=== PATIENT | male | born 1975 | race Caucasian/White ===

== ENCOUNTER 2016-05-07 10:44 | Emergency (ER) | payer OTHER ==
[~2016-05-07] VITALS: Ht 170.2 cm; Wt 137.9 kg
[~2016-05-07 10:44] MED LIST: GOLYTELY PACKE1 EACH PO
--- NOTE | 2016-05-07 11:38 | ED GI/GU/ABDOMINAL COMPLAINT ---
History of Present Illness General Chief Complaint: Abdominal Pain/Flank Pain Stated Complaint: N/V ABDM PAIN Source: patient, old records Exam Limitations: no limitations Vital Signs & Intake/Output Vital Signs & Intake/Output Vital Signs Date Time Temp Pulse Resp B/P Pulse O2 O2 Flow FiO2 Ox Delivery Rate 05/07 1339 97.9 94 15 131/73 95 Room Air Room Air 05/07 1049 97.7 84 20 104/70 97 Room Air ED Intake and Output 05/08 0000 05/07 1200 Intake Total 60 Output Total Balance 60 Intake, Oral 60 Patient 304 lb Weight Allergies Coded Allergies: No Known Allergies (04/25/16) Reconcile Medications Atorvastatin Calcium 20 MG TABLET 1 TAB PO DAILY CHOLESTEROL (Reported) Exenatide Microspheres (Bydureon Pen) 2 MG/0.65 ML PEN.INJCTR 2 MG SC QTUES DIABETES (Reported) Insulin Aspart (Novolog) 100 UNIT/ML VIAL PUMP (Reported) Levothyroxine Sodium 100 MCG TABLET 1 TAB PO DAILY AC THYROID (Reported) Losartan Potassium 50 MG TABLET 1 TAB PO DAILY HEART (Reported) Omeprazole Magnesium (Prilosec Otc) 20 MG TABLET.DR 1 TAB PO DAILY PUD Ondansetron HCl (Zofran) 4 MG TABLET 1 TAB PO Q6-8P PRN NAUSEA Triage Note: PT C/O ABDOMINAL PAIN WITH NAUSEA X 1 MONTH. STATES HE WAS SEEN HERE FOR CONSTIPATION BEFORE AND THAT PROBLEM HAS GONE AWAY BUT STILL NAUSEOUS Triage Nurses Notes Reviewed? yes Onset: Gradual Duration: intermittent Quality/Severity: fullness, mild Severity Numbers: 4 Location: epigastric HPI: Patient is a 40-year-old male with a past medical history of type 1 diabetes, hyperlipidemia and hypothyroidism who presents to emergency room with concerns of a one-month history of epigastric abdominal fullness and intermittent nausea and indigestion. Patient was seen and evaluated here at [facility] emergency room by me on April 25 for concerns of a 2-3 month history of constipation. Patient received abdominal x-ray showing mild concern of stool in the colon and which patient was given a prescription of GoLYTELY and states that since he has had persistent bowel movements last bowel movement was 3 hours prior to arrival patient denies any blood or black stool production. Patient did make a follow- up appointment with roll grinder operator Dr. Frey on May 29. Patient denies any fever, chills, chest pain arm pain jaw pain vomiting back pain shortness of breath, hemoptysis. Patient is compliant with his medications. Patient denies any significant NSAID use. Denies any alcohol use. (YOGI JORDAN) Past History Travel History Traveled to [place] past 21 day No Medical History Any Pertinent Medical History? see below for history Neurological: NONE EENT: NONE Cardiovascular: hypertension, hyperlipidemia Respiratory: NONE Gastrointestinal: NONE Hepatic: NONE Renal: NONE Musculoskeletal: NONE Psychiatric: anxiety, depression Endocrine: diabetes, hypothyroidism Blood Disorders: NONE Cancer(s): NONE IRON CASTER/Reproductive: NONE Surgical History Surgical History: appendectomy Psychosocial History What is your primary language Togolese Tobacco Use: Never used ETOH Use: occasional use Illicit Drug Use: denies illicit drug use Family History Hx Contributory? No (YOGI JORDAN) Review of Systems Review of Systems Constitutional: Reports: no symptoms. EENTM: Reports: no symptoms. Respiratory: Reports: no symptoms. Cardiovascular: Reports: no symptoms. GI: Reports: see HPI, nausea. Genitourinary: Reports: no symptoms. Musculoskeletal: Reports: no symptoms. Skin: Reports: no symptoms. Neurological/Psychological: Reports: no symptoms. Hematologic/Endocrine: Reports: no symptoms. Immunologic/Allergic: Reports: no symptoms. All Other Systems: Reviewed and Negative (YOGI JORDAN) Physical Exam Physical Exam General Appearance: no apparent distress, alert, obese Gastrointestinal: normal bowel sounds, soft, MILD EPIGASTRIC POINT TENDERNESS, NO RIGHT UPPER QUADRANT TENDERNESS NO REBOUND TENDERNESS NO PERITONEAL SIGNS. Comments: HEENT: Normal EENT exam, extraocular motion intact, no nystagmus. Pupils equally round and reactive to light and accommodation. Nose is atraumatic. External auditory canal and Tympanic membranes clear. Pharynx normal. No swelling or edema. Neck: Supple, no lymphadenopathy, normal range of motion without pain or tenderness Back: Nontender, no CVA tenderness. Cardiovascular: Regular rate and rhythms no murmurs rubs or gallops, normal JVP Respiratory: Chest nontender. No respiratory distress.breath sounds clear to auscultation bilaterally Extremity: No edema, no calf tenderness to palpation, normal and equal pulses. Neuro: Alert oriented x3, motor sensory normal, c Skin: No appreciable rash on exposed skin, skin is warm and dry. Psych: Mood and affect is normal, memory and judgment is normal. Core Measures ACS in differential dx? No Severe Sepsis Present: No Septic Shock Present: No (YOGI JORDAN) Progress Differential Diagnosis: AAA, AMI, biliary colic, bowel obstruction, colon cancer , cholecystitis, diverticulitis, epididymitis, esophageal varices, gastritis, hepatitis, hernia, hemorrhoids, ischemic bowel, inflamm bowel dis, Gosia-Titi tear, orchitis, pancreatitis, prostatitis, peptic ulcer, PUD/GERD, perforated viscous, pyelonephritis, SBO, STD, testicular torsion, ureterolithiasis, urinary retention, urethritis, UTI/pyelo Plan of Care: Orders Procedure Date/time Status LIPASE 05/07 1157 Complete COMPREHENSIVE METABOLIC PANEL 05/07 1157 Complete CBC WITHOUT DIFFERENTIAL 05/07 1156 Complete AMYLASE 05/07 115 Complete Laboratory Tests 05/07/16 1238: Anion Gap 13, Estimated GFR > 60, BUN/Creatinine Ratio 15.6, Glucose 174 H, Calcium 9.3, Total Bilirubin 0.4, AST 16 L, ALT 32, Alkaline Phosphatase 121, Total Protein 6.6, Albumin 3.7, Globulin 2.9, Albumin/Globulin Ratio 1.3, Amylase < 30 L, Lipase 41, CBC w Diff NO MAN DIFF REQ, RBC 4.64 L, MCV 85.3, MCH 29.2, RDW 12.9, MPV 7.3 L, Gran % 72.7, Lymphocytes % 19.0 L, Monocytes % 6.0, Eosinophils % 1.6, Basophils % 0.7, Absolute Granulocytes 5.8, Absolute Lymphocytes 1.5, Absolute Monocytes 0.5, Absolute Eosinophils 0.1, Absolute Basophils 0.1, PUBS MCHC 34.3 Patient currently looks well no apparent distress and denies any abdominal pain at this time. Patient is able tolerate by mouth and has no concerns of SBO at this time. Patient has unremarkable blood work an unremarkable CT scan. After GI cocktail was administered patient states that he had improvement of his symptoms. Patient will be given prescriptions of Zofran and proton pump inhibitor patient was strongly advised to return to emergency room if symptoms worsen and to follow up with his established GI appointment with Dr. Frey. Upon discharge patient was able tolerate by mouth looks well no apparent distress and will comply with discharge instructions and had no questions. (YOGI JORDAN) Diagnostic Imaging: Viewed by Me: CT Scan. Radiology Impression: no acute abnormality Initial ED EKG: none Comments: PATIENT: ROMI XIONG PRESENT AGE: 40 PATIENT ACCOUNT NO: [id number] : 77 LOCATION: [facility] ORDERING PHYSICIAN: YOGI RIVERA SERVICE DATE: 05/07/16 EXAM TYPE: CAT - CT ABD & PELVIS W/O IV CONTRAS EXAMINATION: CT ABDOMEN AND PELVIS WITHOUT CONTRAST CLINICAL INFORMATION: Epigastric pain. COMPARISON: Abdominal radiograph from 04/25/2016. TECHNIQUE: Multidetector volumetric imaging was performed from the superior aspect of the liver through the pubic symphysis. Sagittal and coronal reformatted images were obtained on the technologist's workstation. DLP: 1548 mGy-cm. FINDINGS: LUNG BASES: The visualized lung bases are unremarkable. LIVER, GALLBLADDER, AND BILIARY TREE: The liver is normal in size, shape, and attenuation. No focal hepatic lesion or biliary ductal dilatation is present. The gallbladder is and contracted with no evidence of radiopaque gallstones, gallbladder wall thickening, or obvious pericholecystic inflammatory changes. PANCREAS: Unremarkable. SPLEEN: Unremarkable. ADRENAL GLANDS: Unremarkable. KIDNEYS AND URETERS: The kidneys are normal in size, shape, and attenuation. No hydronephrosis, hydroureter, or calculi seen. No perinephric stranding. BLADDER: Unremarkable. GASTROINTESTINAL TRACT: The stomach and small bowel appear unremarkable. No dilated loops of bowel or evidence of obstruction. A suture line seen at the cecum suggesting prior appendectomy. No colonic wall thickening or inflammatory changes. Scattered diverticulosis without evidence of diverticulitis. No free air or free fluid. ABDOMINAL WALL: No significant hernia is appreciated. LYMPH NODES: There are multiple lymph nodes seen along the bilateral iliac chains, without pathologic enlargement. These demonstrate normal morphology with fatty elba. VASCULAR: Unremarkable. PELVIC VISCERA: The prostate and seminal vesicles are unremarkable. OSSEOUS STRUCTURES: Unremarkable. IMPRESSION: No acute findings of the abdomen or pelvis. Evidence of prior appendectomy. No acute inflammatory changes. Minimal diverticulosis without evidence of diverticulitis. (TI RIVERA,YOGI) Departure Departure Disposition: HOME OR SELF CARE Condition: Stable Clinical Impression Primary Impression: Epigastric pain Referrals: MARCELINO HARRIS APRN (PCP/Family) Additional Instructions: As discussed follow-up with your appointment with Dr. TOLENTINO for gastroenterology evaluation. If symptoms worsen or IF YOU develop a new concerning symptom return to the emergency room immediately. Begin the prescription is Zofran for future nausea. Begin the prescription of Prilosec as directed for your symptoms. These PRESCRIPTIONS are waiting at your [facility] pharmacy. Continue home medications. Departure Forms: Customer Survey General Discharge Information Prescriptions: Current Visit Scripts Ondansetron HCl (Zofran) 1 TAB PO Q6-8P PRN NAUSEA #15 TAB Omeprazole Magnesium (Prilosec Otc) 1 TAB PO DAILY #30 TAB (YOGI JORDAN) PA/TRACK OILER Co-Sign Statement Statement: ED Attending supervision documentation- [] I saw and evaluated the patient. I have also reviewed all the pertinent lab results and diagnostic results. I agree with the findings and the plan of care as documented in the PA's/TRACK OILER's documentation. [X] I have reviewed the ED Record and agree with the PA's/TRACK OILER's documentation. [] Additions or exceptions (if any) to the PAs/TRACK OILER's note and plan are summarized below: [] (FATUMA BUCHANAN,CHRISTIE)
[2016-05-07] MEDS ORDERED: ATORVASTATIN CA20 M1 PO (11:48)
[2016-05-07] MEDS ORDERED: LOSARTAN POTASS50 M1 PO (11:48)
[2016-05-07] MEDS ORDERED: LEVOTHYROXINE100 MC1 PO (11:48)
[2016-05-07] MEDS ORDERED: NOVOLOG100 UNIT/2 (11:48)
[2016-05-07] MEDS ORDERED: BYDUREON P2 MG/0.65 SC (11:49)
--- NOTE | 2016-05-07 12:37 | CT SCAN REPORT ---
EXAMINATION: CT ABDOMEN AND PELVIS WITHOUT CONTRAST CLINICAL INFORMATION: Epigastric pain. COMPARISON: Abdominal radiograph from 04/25/2016. TECHNIQUE: Multidetector volumetric imaging was performed from the superior aspect of the liver through the pubic symphysis. Sagittal and coronal reformatted images were obtained on the technologist's workstation. DLP: 1548 mGy-cm. FINDINGS: LUNG BASES: The visualized lung bases are unremarkable. LIVER, GALLBLADDER, AND BILIARY TREE: The liver is normal in size, shape, and attenuation. No focal hepatic lesion or biliary ductal dilatation is present. The gallbladder is and contracted with no evidence of radiopaque gallstones, gallbladder wall thickening, or obvious pericholecystic inflammatory changes. PANCREAS: Unremarkable. SPLEEN: Unremarkable. ADRENAL GLANDS: Unremarkable. KIDNEYS AND URETERS: The kidneys are normal in size, shape, and attenuation. No hydronephrosis, hydroureter, or calculi seen. No perinephric stranding. BLADDER: Unremarkable. GASTROINTESTINAL TRACT: The stomach and small bowel appear unremarkable. No dilated loops of bowel or evidence of obstruction. A suture line seen at the cecum suggesting prior appendectomy. No colonic wall thickening or inflammatory changes. Scattered diverticulosis without evidence of diverticulitis. No free air or free fluid. ABDOMINAL WALL: No significant hernia is appreciated. LYMPH NODES: There are multiple lymph nodes seen along the bilateral iliac chains, without pathologic enlargement. These demonstrate normal morphology with fatty elba. VASCULAR: Unremarkable. PELVIC VISCERA: The prostate and seminal vesicles are unremarkable. OSSEOUS STRUCTURES: Unremarkable. IMPRESSION: No acute findings of the abdomen or pelvis. Evidence of prior appendectomy. No acute inflammatory changes. Minimal diverticulosis without evidence of diverticulitis.
[2016-05-07 12:52] LABS: ABSOLUTE BASOPHIL COUNT 0.1 /CUMM (0.0-0.2); ABSOLUTE EOSINOPHIL COUNT 0.1 /CUMM (0.0-0.7); ABSOLUTE GRANULOCYTE CT 5.8 /CUMM (1.4-6.5); ABSOLUTE LYMPH COUNT 1.5 /CUMM (1.2-3.4); ABSOLUTE MONOCYTE COUNT 0.5 /CUMM (0.10-0.60); BASOPHIL % 0.7 % (0.0-2.0); EOSINOPHIL % 1.6 % (0-5); GRANULOCYTE % 72.7 % (42.2-75.2); HEMATOCRIT 39.5 % (42-52); MEAN CORPUSCULAR HGB 29.2 PG (27.0-31.0); MEAN CORPUSCULAR HGB CONC 34.3 G/DL (33.0-37.0); MEAN CORPUSCULAR VOLUME 85.3 FL (80.0-94.0); MEAN PLATELET VOLUME 7.3 FL (7.4-10.4); PLATELET COUNT 286 /CUMM (130-400); RBC DISTRIBUTION WIDTH 12.9 % (11.5-14.5); RED BLOOD CELL CT 4.64 /CUMM (4.70-6.10)
[2016-05-07] MEDS ORDERED: PRILOSEC OTC20 M1 PO (13:27)
[2016-05-07] MEDS ORDERED: ZOFRAN4 M2 PO (13:27)
[2016-05-07 13:39] VITALS: BP 131/73
== END 2016-05-07 13:40 ==
LOC: ERH 10:44
PROVIDERS: Physician Assistant
DX: R10.13 Epigastric pain (principal); I10 Essential (primary) hypertension; E10.9 Type 1 diabetes mellitus without complications; Z79.4 Long term (current) use of insulin
CPT/HCPCS: 74176